=== PATIENT | female | born 2005 | race Hispanic/Latino ===

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

== ENCOUNTER 2024-05-02 22:06 | Emergency (ER) | payer BC, MEDICAID ==
[~2024-05-02] VITALS: Ht 157.5 cm; Wt 103.0 kg
[2024-05-02 22:21] VITALS: BP 189/69; PULSE 96; RESP 16; TEMP 98.6; O2SAT 99
[2024-05-02] MEDS: LIDOCAINE 1%-EPI 1:100,000 20 ML VIAL IJ SCH (22:55)
[2024-05-02] MEDS ORDERED: AMOX-427 PO (23:08)
== END 2024-05-02 23:15 | disposition home or self-care (01) ==
LOC: EDH 22:06
DX: L02.411 Cutaneous abscess of right axilla (principal); Z79.899 Other long term (current) drug therapy; Z98.890 Other specified postprocedural states
CPT/HCPCS: 99283; 10060; J3490

== ENCOUNTER 2024-07-23 23:27 | Emergency (ER) | payer SELFPAY ==
[~2024-07-23] VITALS: Ht 157.5 cm; Wt 103.6 kg
[~2024-07-23 23:27] MED LIST: AMOX-427 PO
--- NOTE | 2024-07-23 23:30 | NUR ---
COVID, FLU, STREP SWABS COLLECTED AND SENT [facility] PROVIDED
--- NOTE | 2024-07-23 23:37 | ERN ---
ED Note History of Present Illness Stated Complaint: COUGH, HEADACHE,N/V, Chief Complaint: Multiple Complaints Time Seen by MD: 23:30 Time Seen by Midlevel: 23:35 Dictation: 19-year-old female with no past medical history coming in complaining of cough, headache, nausea, vomiting and chest pain onset today. Patient states coworkers and friend were diagnosed with RSV. Patient states he took Tylenol at 6:00 p.m.. LMP was the beginning of last month. No other complaints at this time. Allergies: Coded Allergies: No Known Drug Allergies (Unverified Allergy, Unknown, 11/12/19) Home Meds Active Scripts Amoxicillin/Potassium Clav (Augmentin Xr 1,000-62.5 Tab) 1,000 Mg-62.5 Mg Tab.er.12h, 1 EACH PO BID for 10 Days, #20 TAB Prov:JERROD PAREDES 05/02/24 Past Medical History Past Medical History: No Pertinent History Surgical History: Other Surgical History Other: Social History: Other : 2 Para: 1 Aborts: 0 Review of System Dictation Constitutional: Negative for fever,chills, and weight loss Eyes: Negative for injury, pain,redness, and discharge ENT: Negative for injury,pain or swelling Cardiovascular: Negative for chest pain, palpitations, and edema Respiratory: Complaining of cough, no shortness a breath, no wheezing Abdomen/GI: Complaining of nausea and vomiting, no abdominal pain, no diarrhea, and no constipation Back: Negative for injury and pain : Negative for injury, bleeding and discharge MS/Extremity: Negative for injury and deformity Skin: Negative for rash, and discoloration Neuro: Complaining of headache, no weakness, no numbness, no tingling, and no seizure Psych: Negative for suicide ideation, homicidal ideation, and hallucinations Review of Systems: was completed Initial Vital Sign VS Vital Signs Date Time Temp Pulse Resp B/P (MAP) Pulse Ox O2 Delivery O2 Flow Rate FiO2 07/23/24 23:28 100.9 111 16 162/97 100 Room Air Physical Exam Dictation Constitutional: Negative for fever,chills, and weight loss Eyes: Negative for injury, pain,redness, and discharge ENT: Negative for injury,pain or swelling Cardiovascular: Negative for chest pain, palpitations, and edema Respiratory: Negative for shortness of breath, cough, and wheezing, Abdomen/GI: Negative for abdominal pain, nausea, vomiting, diarrhea, and constipation Back: Negative for injury and pain : Negative for injury, bleeding and discharge MS/Extremity: Negative for injury and deformity Skin: Negative for rash, and discoloration Neuro: Negative for headache, weakness, numbness, tingling, and seizure Psych: Negative for suicide ideation, homicidal ideation, and hallucinations Results (Laboratory/Radiology) Laboratory/Radiology Laboratory Tests Test 07/23/24 23:30 07/23/24 23:50 07/23/24 23:53 Influenza Type A Antigen Negative For Type A Influenza Type B Antigen Negative For Type B SARS-CoV-2, RNA, NAAT NEGATIVE SARS CoV-2 Group A Streptococcus Rapid negative (NEGATIVE) Urine Color LIGHT-YELLOW (YELLOW) Urine Appearance CLEAR (CLEAR) Urine pH 7.0 (5.0-8.0) Urine Specific [place] 1.021 (1.001-1.031) Urine Protein 10 mg/dL (NEGATIVE) H Urine Glucose (UA) NEGATIVE mg/dL (NEGATIVE) Urine Ketones NEGATIVE mg/dL (NEGATIVE) Urine Occult Blood SMALL (NEGATIVE) H Urine Nitrate NEGATIVE (NEGATIVE) Urine Bilirubin NEGATIVE mg/dL (NEGATIVE) Urine Urobilinogen 0.2 mg/dL (0.2-1.0) Urine Leukocyte Esterase NEGATIVE Suraj/uL Urine RBC 2-5 /HPF (0-1) H Urine WBC 2-5 /HPF (0-1) H Urine Squamous Epithelial Cells RARE /HPF (0-2) Urine Bacteria RARE /HPF (None Seen) Urine HCG, Qualitative NEGATIVE (NEGATIVE) Troponin I High Sensitivity < 4 ng/L (4-50) L Labs Reviewed?: Yes EKG Comment: Date:07/24/24 Time:0016 Ventricular rate:101 IN interval:141 QRS duration:75 QT/QTc:336/435 EKG interpretation: Sinus tachycardia Reviewed by ED Attending no STEMI interpreted by ER MD ED Course ED Course Orders Procedure Category Date Status Time Covid Rna Naat LAB 07/23/24 Complete 23:29 Influenza Type A & B, LAB 07/23/24 Complete Rapid 23:29 Rapid (Group A Strep) LAB 07/23/24 Complete 23:29 Urinalysis Profile LAB 07/23/24 Complete 23:29 ,Urine Test LAB 07/23/24 Complete 23:29 12 Lead Ekg Tracing- EKG 07/23/24 Logged Technical 23:31 Troponin I High LAB 07/23/24 Complete Sensitivity 23:31 Vital Signs Date Time Temp Pulse Resp B/P (MAP) Pulse Ox O2 Delivery O2 Flow Rate FiO2 07/23/24 23:28 100.9 111 16 162/97 100 Room Air Medical Decision Making MDM MDM: 19-year-old female with no past medical history coming in complaining of cough, headache, nausea, vomiting and chest pain onset today. Patient states coworkers and friend were diagnosed with RSV. Patient states he took Tylenol at 6:00 p.m.. LMP was the beginning of last month. No other complaints at this time. Serologies negative for COVID and strep and flu. Troponin is negative, EKGs did not show any ST elevations or dysrhythmias. UA shows no evidence of urinary tract infection. Discussed findings with the patient. Discussed possibly acute viral syndrome and he is to follow up with PCP in 1-2 days. And take [id number] medication for symptomatic treatment. Patient verbalized understanding, answered all questions. Differential diagnosis: , viral syndrome, influenza, COVID, strep Rationale: Tests considered and ordered secondary to shared decision making include: Previous outside records reviewed: Old ER visits. Risk of complication and/or morbidity or mortality of patient management: None Medications-Per medication reconciliation Need for hospitalization: Patient does not meet criteria for hospitalization. Need for emergency major/minor surgery: No There are no social concerns with this patient. Prescription drug management Prescriptions will include symptomatic care Patient's prior external medical records from other ER visits were reviewed by me as indicated. Prior testing and results from previous visits were reviewed. Prior tests were taken into account with medical decision making and resource utilization, independent historian/historians were used to obtain complete medical history. I independently interpreted the test that were performed, results were reviewed by me and considered findings on radiology if ordered. Medical management and examination interpretation discussions were had by me with other qualified healthcare professionals as indicated for the patient's care. DX & DISP Disposition: Discharge Departure Impression: Primary Impression: Acute viral syndrome Condition: Stable Additional Instructions: Your negative for flu COVID and strep, you do not have a urinary tract infection. This is most likely acute viral syndrome this last anywhere from 7- 10 days. You can have symptoms like cough, congestion, fever. You can take o [id number] medication to treat your symptoms like decongestants, Tylenol, and Motrin. Follow up with your primary doctor in 1-2 days or return to the emergency room if your symptoms worsen. Referrals: SELF,REFERRAL (PCP) Time of Disposition: 00:55 I have reviewed the case, and I agree with, Diagnosis and Plan JANAE KIDD NP Jul 23, 2024 23:37
[2024-07-23 23:55] LABS: RAPID GROUP A STREP negative (NEGATIVE)
[2024-07-24] LABS: SARS-CoV-2, RNA, NAAT NEGATIVE SARS CoV-2 (NEGATIVE)
[2024-07-24 00:04] LABS: INFLUENZA TYPE A Negative For Type A (NEGATIVE); INFLUENZA TYPE B Negative For Type B (NEGATIVE)
[2024-07-24 00:22] LABS: APPEARANCE,URINE CLEAR (CLEAR); BILIRUBIN,URINE NEGATIVE (NEGATIVE); COLOR,URINE LIGHT-YELLOW (YELLOW); GLUCOSE, URINE (UA) NEGATIVE (NEGATIVE); KETONES,URINE NEGATIVE (NEGATIVE); LEUKOCYTE ESTERASE ,URINE NEGATIVE Leu/uL (NEGATIVE); NITRATE,URINE NEGATIVE (NEGATIVE); OCCULT BLOOD,URINE SMALL (NEGATIVE); PROTEIN,URINE 10 mg/dL (NEGATIVE); UROBILINOGEN,URINE 0.2 mg/dL (0.2-1.0)
[2024-07-24 00:24] LABS: ADD UA MICROSCOPIC YES; HCG,QUALITATIVE URINE NEGATIVE (NEGATIVE)
[2024-07-24 00:26] LABS: BACTERIA,URINE RARE /HPF (None Seen); MUCUS,URINE RARE LPF (None Seen); SQUAMOUS EPITHELIAL CELL,UR RARE /HPF (0-2)
[2024-07-24 01:40] VITALS: BP 135/86; PULSE 98; RESP 18; TEMP 98.8; O2SAT 99
--- NOTE | 2024-07-24 07:20 | EKG ---
[facility] Test Date: 2024-07-24 Test Time: 00:16:52 Pat Name: NEHEMIAS METZ Department: [facility] Room: Gender: F Materials Handling Coordinator: [id number] : 2005 Requested By: KAI HER Order Number: [id number] Reading MD: Claude Harding Measurements Intervals [place] Rate: 101 P: 53 OK: 141 QRS: 75 QRSD: 85 T: 3 QT: 336 QTc: 435 Interpretive Statements Sinus tachycardia No previous ECG available for comparison Electronically Signed On 07-24-2024 21:07:42 ACCESS DEVELOPER by Claude Harding Please click the below link to view image of tracing.
== END 2024-07-24 01:43 | disposition home or self-care (01) ==
LOC: EDH 23:27
DX: B34.9 Viral infection, unspecified (principal); Z20.822 Contact with and (suspected) exposure to COVID-19
CPT/HCPCS: 81001; 81025; 84484; 87635; 87804; 87880; 93005; 99284

== ENCOUNTER 2024-10-27 23:29 | Emergency (ER) | payer BC ==
[~2024-10-27] VITALS: Ht 157.5 cm; Wt 95.3 kg
[2024-10-27 23:55] LABS: BASOPHILS # (AUTO) 0.05 K/uL (0.00-0.20); BASOPHILS % (AUTO) 0.4 % (0.0-5.0); EOSINOPHILS # (AUTO) 0.13 K/uL (0.00-0.70); EOSINOPHILS % (AUTO) 1.1 % (0.0-8.0); HEMATOCRIT 39.3 % (36-48); IMMATURE GRANULOCYTE ABSOLUTE 0.12 K/uL (0-1); LYMPHOCYTES # (AUTO) 3.1 K/uL (1.0-4.8); LYMPHOCYTES % (AUTO) 25.2 % (21.0-51.0); MEAN CORPUSCULAR HEMOGLOBIN 25.9 pg (27.0-33.0); MEAN CORPUSCULAR HGB CONC 33.1 g/dL (32.0-36.0); MEAN CORPUSCULAR VOLUME 78.4 fL (80-100); MONOCYTES # (AUTO) 0.7 K/uL (0.1-1.0); MONOCYTES % (AUTO) 5.6 % (3.0-13.0); NEUTROPHILS # (AUTO) 8.2 K/uL (1.8-7.7); NEUTROPHILS % (AUTO) 66.7 % (40.0-77.0); PLATELET COUNT (AUTO) 327 K/uL (130-400); RED BLOOD CELL COUNT(AUTO) 5.01 MIL/uL (4.00-5.50); RED CELL DISTRIBUTION WIDTH 13.3 % (11.0-15.5); WHITE BLOOD COUNT (AUTO) 12.2 K/uL (4.8-10.8)
[2024-10-27] MEDS: ondanSETRON 4MG INJ IVP ONE (23:55)
[2024-10-27] MEDS: morPHINE 4 MG SYG IVP ONE (23:56)
[2024-10-27 23:58] LABS: APPEARANCE,URINE CLEAR (CLEAR); BILIRUBIN,URINE NEGATIVE (NEGATIVE); COLOR,URINE LIGHT-YELLOW (YELLOW); GLUCOSE, URINE (UA) NEGATIVE (NEGATIVE); KETONES,URINE NEGATIVE (NEGATIVE); LEUKOCYTE ESTERASE ,URINE NEGATIVE Leu/uL (NEGATIVE); NITRATE,URINE NEGATIVE (NEGATIVE); PROTEIN,URINE 20 mg/dL (NEGATIVE); UROBILINOGEN,URINE 0.2 mg/dL (0.2-1.0)
[2024-10-27 23:59] LABS: ADD UA MICROSCOPIC YES
[2024-10-28] LABS: BACTERIA,URINE RARE /HPF (None Seen); MUCUS,URINE RARE LPF (None Seen); SQUAMOUS EPITHELIAL CELL,UR RARE /HPF (0-2)
[2024-10-28 00:01] LABS: HCG,QUALITATIVE URINE NEGATIVE (NEGATIVE)
[2024-10-28 00:03] LABS: CREATININE 0.9 mg/dL (0.5-1.0); POTASSIUM 3.9 mmol/L (3.5-5.1)
--- NOTE | 2024-10-28 00:42 | ERN ---
ED Note History of Present Illness Stated Complaint: PELVIC PAIN Chief Complaint: Pelvic Pain Time Seen by MD: 23:31 Dictation: This is a 19-year-old female who presented to the emergency room with severe acute left lower quadrant pelvic pain so radiating to the mons pubis. She stat ed that she was in usual health and the pain developed suddenly. She ate dinner around 5 or 6 and and other family members also ate the same food but did not experience any of her symptoms. Initially the pain started in the left lower quadrant area subsequently eats diffuse with radiation all over. Her last menstrual period was 1 week ago when she stated that her period was not like a regular. With only mild spotting lasted for 2 days. No burning micturition no frequency. No hematuria Temperature 99.2 pulse 107 respirations 20 blood pressure 146/99 with a pulse oximetry of 98% on room air Allergies: Coded Allergies: No Known Drug Allergies (Unverified Allergy, Unknown, 11/12/19) Home Meds Active Scripts Amoxicillin/Potassium Clav (Augmentin Xr 1,000-62.5 Tab) 1,000 Mg-62.5 Mg Tab.er.12h, 1 EACH PO BID for 10 Days, #20 TAB Prov:JERROD PAREDES 05/02/24 Past Medical History Past Medical History: Diabetes-Type II, Hypertension Surgical History: Surgical History Other: LEFT UPPER ARM BIRTHCONTROL Family History: Negative Social History: Negative, Other : 2 Para: 2 Aborts: 0 RN Note Reviewed/Agreed w/PFSH: Yes Review of System Dictation Constitutional: Negative for fever,chills, and weight loss Eyes: Negative for injury, pain,redness, and discharge ENT: Negative for injury,pain or swelling Cardiovascular: Negative for chest pain, palpitations, and edema Respiratory: Negative for shortness of breath, cough, and wheezing, Abdomen/GI: Negative for abdominal pain, nausea, vomiting, diarrhea, and constipation Back: Negative for injury and pain : Negative for injury, bleeding and discharge deep left-sided pelvic pain and lower abdominal pain MS/Extremity: Negative for injury and deformity Skin: Negative for rash, and discoloration Neuro: Negative for headache, weakness, numbness, tingling, and seizure Psych: Negative for suicide ideation, homicidal ideation, and hallucinations Initial Vital Sign VS Vital Signs Date Time Temp Pulse Resp B/P (MAP) Pulse Ox O2 Delivery O2 Flow Rate FiO2 10/27/24 23:31 99.1 107 20 146/99 99 Room Air 10/27/24 23:49 0 21 Physical Exam Dictation General: awake, alert, NAD obese female Head/Face: Normocephalic, atraumatic Eyes: PERRL, EOMI, vision at baseline ENT: oral cavity clear, TMs clear, no signs of infection Neck: Trachea midline, supple, no nuchal rigidity Cardiovascular: RRR, normal S1/S2, No MRGs, no JVD Respiratory: CTAB, no respiratory distress, No rales or wheezes Abdomen: Soft, non-tender, non-distended, normal bowel sounds, no guarding or rebound. Skin: Warm, dry, normal turgor, no rash MS/Extremity: Pulses equal, no cyanosis, neurovascular intact, FROM Neuro: COAx4, GCS 15, strength 5/5, CN 2-12 intact, normal cerebellar exam, normal gait, Psych: Normal behavior, mood, and affect normal Extremities-trace edema without any palpable cords, Homans sign is negative Results (Laboratory/Radiology) Laboratory/Radiology Laboratory Tests Test 10/27/24 23:40 White Blood Count 12.2 K/uL (4.8-10.8) H Red Blood Count 5.01 MIL/uL (4.00-5.50) Hemoglobin 13.0 g/dL (12.0-16.0) Hematocrit 39.3 % (36-48) Mean Corpuscular Volume 78.4 fL (80-100) L Mean Corpuscular Hemoglobin 25.9 pg (27.0-33.0) L Mean Corpuscular Hemoglobin Concent 33.1 g/dL (32.0-36.0) Red Cell Distribution Width 13.3 % (11.0-15.5) Platelet Count 327 K/uL (130-400) Mean Platelet Volume 8.9 fL (7.5-10.5) Immature Granulocyte % (Auto) 1.0 % (0-1) Neutrophils (%) (Auto) 66.7 % (40.0-77.0) Lymphocytes (%) (Auto) 25.2 % (21.0-51.0) Monocytes (%) (Auto) 5.6 % (3.0-13.0) Eosinophils (%) (Auto) 1.1 % (0.0-8.0) Basophils (%) (Auto) 0.4 % (0.0-5.0) Neutrophils # (Auto) 8.2 K/uL (1.8-7.7) H Lymphocytes # (Auto) 3.1 K/uL (1.0-4.8) Monocytes # (Auto) 0.7 K/uL (0.1-1.0) Eosinophils # (Auto) 0.13 K/uL (0.00-0.70) Basophils # (Auto) 0.05 K/uL (0.00-0.20) Absolute Immature Granulocyte (auto 0.12 K/uL (0-1) Nucleated Red Blood Cells 0.0 % (0.0-0.19) Urine Color LIGHT-YELLOW (YELLOW) Urine Appearance CLEAR (CLEAR) Urine pH 6.0 (5.0-8.0) Urine Specific [place] 1.029 (1.001-1.031) Urine Protein 20 mg/dL (NEGATIVE) H Urine Glucose (UA) NEGATIVE mg/dL (NEGATIVE) Urine Ketones NEGATIVE mg/dL (NEGATIVE) Urine Occult Blood +- (TRACE) (NEGATIVE) H Urine Nitrate NEGATIVE (NEGATIVE) Urine Bilirubin NEGATIVE mg/dL (NEGATIVE) Urine Urobilinogen 0.2 mg/dL (0.2-1.0) Urine Leukocyte Esterase NEGATIVE Suraj/uL Urine RBC 2-5 /HPF (0-1) H Urine WBC 2-5 /HPF (0-1) H Urine Squamous Epithelial Cells RARE /HPF (0-2) Urine Bacteria RARE /HPF (None Seen) Urine HCG, Qualitative NEGATIVE (NEGATIVE) Sodium Level 134 mmol/L (136-145) L Potassium Level 3.9 mmol/L (3.5-5.1) Chloride Level 99 mmol/L (101-111) L Carbon Dioxide Level 29 mmol/L (21-32) Blood Urea Nitrogen 10 mg/dL (7-18) Creatinine 0.9 mg/dL (0.5-1.0) Glomerular Filtration Rate Calc 93 mL/min (>90) Random Glucose 107 mg/dL (70-105) H Total Calcium 9.1 mg/dL (8.5-10.1) Labs Reviewed?: Yes CT Scan Comment: REASON: severe acute left LQ abdominal pain ? kidb=ginette stone? ruptured ectopic ORDERING PHYSICIAN: KAI HER MD PROCEDURE: ABD PELVWO - CT ABD/PEL WO CON RENAL/APPY CT ABD/PEL WO CON RENAL/APPY HISTORY: Left lower abdominal pain COMPARISON: None TECHNIQUE: Multiple sequential axial images of the abdomen and pelvis were obtained from the dome of the diaphragm through symphysis pubis. Patient was not given contrast through intravenous route. Oral contrast was not given. FINDINGS: No pleural effusion is seen bilaterally. There is no evidence of parenchymal disease or pulmonary nodule of the visualized lower lungs. Degenerative changes of the thoracolumbar spine are present. The heart is not enlarged. Then liver is enlarged with fatty changes measuring 22 cm. The liver, spleen, adrenal glands and pancreas are unremarkable. There is no evidence of hydronephrosis bilaterally. No evidence of renal stone is seen. Fecal material is seen in the colon. There are normal size retroperitoneal and mesenteric lymph nodes. No ascites is seen. No CT evidence of acute appendicitis is seen. Left ovary is enlarged measuring 5.3 x 3 cm. Pelvic sidewalls are symmetric bilaterally. Bladder is moderately distended. IMPRESSION: 1. No CT evidence of acute appendicitis is seen. Left ovary is enlarged measuring 5.3 x 3 cm. No ascites. No hydronephrosis. CT was performed with one or more following dose reduction techniques: automated exposure control, adjustment of the mA and kv according to patient's size, or use of a iterative reconstruction technique. DICTATED BY: DEMARCUS CALLOWAY MD DATE: 10/28/24102 ELECTRONICALLY SIGNED BY: DEMARCUS CALLOWAY MD DATE: 10/28/24107 ED Course ED Course Orders Procedure Category Date Status Time Cbc With Differential LAB 10/27/24 Complete 23:44 Basic Metabolic Panel LAB 10/27/24 Complete 23:44 Urinalysis Profile LAB 10/27/24 Complete 23:44 ,Urine Test LAB 10/27/24 Complete 23:44 Morphine 4mg Syg PHA 10/28/24 Complete (Morphine 4mg Syg) 00:00 Ondansetron 4mg Inj PHA 10/28/24 Complete (Zofran 4mg Inj) 00:00 Ct Abd/Pel Wo Con CT 10/28/24 Resulted Renal/Appy 00:35 Current Medications Medications (Trade) Dose Ordered Sig/Kae Route PRN Reason Start Time Stop Time Status Last Admin Dose Admin Morphine Sulfate (morPHINE 4MG SYG) 4 mg ONCE ONCE IVP 10/28/24 00:00 10/28/24 00:01 DC 10/27/24 23:56 Ondansetron HCl (zoFRAN 4MG INJ) 4 mg ONCE ONCE IVP 10/28/24 00:00 10/28/24 00:01 DC 10/27/24 23:55 Vital Signs Date Time Temp Pulse Resp B/P (MAP) Pulse Ox O2 Delivery O2 Flow Rate FiO2 10/28/24 01:34 98.1 74 16 127/67 99 Room Air* 0 21 10/27/24 23:49 74 16 134/71 97 Room Air* 0 21 10/27/24 23:31 99.1 107 20 146/99 99 Room Air We will perform diagnostic labs, advanced imaging and administer medications according to the patient's complaint. Once the results are available, will review and personally interpreted the labs to rule out any acute life- threatening emergency the trach require immediate intervention and treatment. I will then re-evaluate the patient after treatment and diagnostic exams have return to determine whether the patient requires any further testing, can safely be discharged home or need further admission to hospital for additional treatment and evaluation. CBC showed a white count of 12.2 hemoglobin of 13. BNP 7 is with a normal limits urinalysis is unremarkable test is negative. CT scan of the abdomen and pelvis showed enlarged left ovary and constipation I updated the patient and her spouse on the findings and she indicated to me that she was aware of enlarged left ovary. Her pain is significantly improved and I educated her on bowel regimen and laxatives. Medical Decision Making MDM MDM: Differential diagnosis: Colitis, constipation, ovarian cyst rupture, ectopic , renal stone Rationale: Tests considered and ordered secondary to shared decision making include: Previous outside records reviewed: Old ER visits. Risk of complication and/or morbidity or mortality of patient management: None Medications-Per medication reconciliation Need for hospitalization: Patient does not meet criteria for hospitalization. Need for emergency major/minor surgery: No There are no social concerns with this patient. Prescription drug management Prescriptions will include symptomatic care Patient's prior external medical records from other ER visits were reviewed by me as indicated. Prior testing and results from previous visits were reviewed. Prior tests were taken into account with medical decision making and resource utilization, independent historian/historians were used to obtain complete medical history. I independently interpreted the test that were performed, results were reviewed by me and considered findings on radiology if ordered. Medical management and examination interpretation discussions were had by me with other qualified healthcare professionals as indicated for the patient's care. Problem List Problem List: (1) Left lower quadrant abdominal pain (2) Left ovarian enlargement (3) Constipation DX & DISP Disposition: Discharge Departure Impression: Primary Impression: Left lower quadrant abdominal pain Additional Impressions: Left ovarian enlargement, Constipation Condition: Stable Additional Instructions: Patient and the caregiver have been informed of all the diagnostic tests and the imaging conducted during the today's visit to the emergency room and has verbalized understanding of the results I have personally reviewed and interpreted all diagnostic exams performed here in the ER today as well as the vital signs documented by the nursing staff. The patient is now being discharged to home and should follow up with the primary care physician or the specialist as directed by the ER staff. Follow-up with primary care provider in 1 to 2 days. Take medications as directed here in the emergency room. Okay to continue home medications unless otherwise discussed during your visit in the emergency room today. Return to your nearest emergency room if symptoms worsen or if there is no improvement. Call 911 if you need immediate assistance. Take Tylenol or Motrin [id number] as needed and if no contraindications are present. Increase oral hydration. A wound culture or urine culture was ordered here in the emergency room department please follow-up with primary care provider and advise them to get repeat ports from our facility. If you had any Bryant wrap/splints that were applied here, please do not remove them until you see your primary care or specialty. Patient should also follow up with her OBGYN physician for evaluation of her left ovary Referrals: SELF,REFERRAL (PCP) KAI HER MD Oct 28, 2024 00:42
--- NOTE | 2024-10-28 01:08 | HMCIMG ---
CT ABD/PEL WO CON RENAL/APPY HISTORY: Left lower abdominal pain COMPARISON: None TECHNIQUE: Multiple sequential axial images of the abdomen and pelvis were obtained from the dome of the diaphragm through symphysis pubis. Patient was not given contrast through intravenous route. Oral contrast was not given. FINDINGS: No pleural effusion is seen bilaterally. There is no evidence of parenchymal disease or pulmonary nodule of the visualized lower lungs. Degenerative changes of the thoracolumbar spine are present. The heart is not enlarged. Then liver is enlarged with fatty changes measuring 22 cm. The liver, spleen, adrenal glands and pancreas are unremarkable. There is no evidence of hydronephrosis bilaterally. No evidence of renal stone is seen. Fecal material is seen in the colon. There are normal size retroperitoneal and mesenteric lymph nodes. No ascites is seen. No CT evidence of acute appendicitis is seen. Left ovary is enlarged measuring 5.3 x 3 cm. Pelvic sidewalls are symmetric bilaterally. Bladder is moderately distended. IMPRESSION: 1. No CT evidence of acute appendicitis is seen. Left ovary is enlarged measuring 5.3 x 3 cm. No ascites. No hydronephrosis. CT was performed with one or more following dose reduction techniques: automated exposure control, adjustment of the mA and kv according to patient's size, or use of a iterative reconstruction technique.
[2024-10-28 01:34] VITALS: BP 127/67; PULSE 74; RESP 16; TEMP 98.1; O2SAT 99
== END 2024-10-28 01:39 | disposition home or self-care (01) ==
LOC: EDH 23:29
DX: K59.00 Constipation, unspecified (principal); N83.8 Other noninflammatory disorders of ovary, fallopian tube and broad ligament; R10.32 Left lower quadrant pain; E11.9 Type 2 diabetes mellitus without complications; I10 Essential (primary) hypertension; Z98.890 Other specified postprocedural states
CPT/HCPCS: 99284; 96374; 96375; 80048; 85025; 81001; 81025; 36415; 74176; J2405; J2270

== ENCOUNTER → 2025-06-07 | Emergency (ER) | payer BC ==
[~2025-06-07] VITALS: Ht 157.5 cm; Wt 102.1 kg
[~2025-06-07] MED LIST changes: +ERYT1OIN7 OP
[2025-06-07 23:12] VITALS: BP 139/98; PULSE 119; RESP 20; TEMP 98
[2025-06-07] MEDS: TETRACAINE HCL 0.5% 4 ML OPHTH SOLN OP ONE (23:44)
[2025-06-07] MEDS: FLUORESCEIN SODIUM 1 STRIP STRIP OP ONE (23:44)
--- NOTE | 2025-06-07 23:45 | ERN ---
ED Note History of Present Illness Stated Complaint: LEFT EYE REDNESS Chief Complaint: Eye Problems Time Seen by MD: 23:13 Time Seen by Midlevel: 23:15 Dictation: 20-year-old female with no past medical history coming in with complaints of left eye redness, , crusting for the last week. Patient states she thinks her mosquito because she has a had a for a very long time. Allergies: Coded Allergies: No Known Drug Allergies (Unverified Allergy, Unknown, 11/12/19) Home Meds Active Scripts Amoxicillin/Potassium Clav (Augmentin Xr 1,000-62.5 Tab) 1,000 Mg-62.5 Mg Tab.er.12h, 1 EACH PO BID for 10 Days, #20 TAB Prov:JERROD PAREDES 05/02/24 Past Medical History Past Medical History: No Pertinent History, Diabetes-Type II, Hypertension Surgical History: Surgical History Other: LEFT UPPER ARM BIRTHCONTROL Family History: Negative Social History: Negative, Other : 2 Para: 2 Aborts: 0 Review of System Dictation Constitutional: Negative for fever,chills, and weight loss Eyes: Complaining of left eye redness, drainage ENT: Negative for injury,pain or swelling Cardiovascular: Negative for chest pain, palpitations, and edema Respiratory: Negative for shortness of breath, cough, and wheezing, Abdomen/GI: Negative for abdominal pain, nausea, vomiting, diarrhea, and constipation Back: Negative for injury and pain : Negative for injury, bleeding and discharge MS/Extremity: Negative for injury and deformity Skin: Negative for rash, and discoloration Neuro: Negative for headache, weakness, numbness, tingling, and seizure Psych: Negative for suicide ideation, homicidal ideation, and hallucinations Review of Systems: was completed Initial Vital Sign VS Vital Signs Date Time Temp Pulse Resp B/P (MAP) Pulse Ox O2 Delivery O2 Flow Rate FiO2 06/07/25 23:12 98.1 119 20 139/98 100 Room Air Physical Exam Dictation General: awake, alert, NAD Head/Face: Normocephalic, atraumatic Eyes: PERRL, EOMI, vision at baseline, minimal fluorescein reuptake, consistent with a corneal abrasion, and conjunctivitis, no foreign body, no ulceration relieved with topical anesthetic did you take lesions, negative cong ENT: oral cavity clear, TMs clear, no signs of infection Neck: Trachea midline, supple, no nuchal rigidity Cardiovascular: RRR, normal S1/S2, No MRGs, no JVD Respiratory: CTAB, no respiratory distress, No rales or wheezes Abdomen: Soft, non-tender, non-distended, normal bowel sounds, no guarding or rebound. Skin: Warm, dry, normal turgor, no rash MS/Extremity: Pulses equal, no cyanosis, neurovascular intact, FROM Neuro: COAx4, GCS 15, strength 5/5, CN 2-12 intact, normal cerebellar exam, normal gait, Psych: Normal behavior, mood, and affect normal ED Course ED Course Orders Procedure Category Date Status Time Tetracaine Hcl PHA 06/07/25 Complete (Pontocaine 0.5% 23:30 *Nursing CPOE 06/07/25 Transmitted Communication: 23:18 Fluorescein Sodium PHA 06/07/25 Complete (Qnweq-U-Nngiy At) 23:30 Current Medications Medications (Trade) Dose Ordered Sig/Kae Route PRN Reason Start Time Stop Time Status Last Admin Dose Admin Fluorescein Sodium (Sbtqn-J-Xidzr At) 1 strip ONCE ONCE OP 06/07/25 23:30 06/07/25 23:32 DC Tetracaine HCl (Pontocaine 0.5% Ophth Soln) 1 OR 2 DROPS ONCE ONCE OP 06/07/25 23:30 06/07/25 23:31 DC Vital Signs Date Time Temp Pulse Resp B/P (MAP) Pulse Ox O2 Delivery O2 Flow Rate FiO2 06/07/25 23:12 98.1 119 20 139/98 100 Room Air Medical Decision Making MDM MDM: 20-year-old female with no past medical history coming in with complaints of left eye redness, , crusting for the last week. Patient states she thinks her mosquito because she has a had a for a very long time. Findings consistent with conjunctivitis and corneal abrasion. We will prescribe patient has some erythromycin and follow up outpatient with poultryman. Discussed with the patient on red flag symptoms of when to return back to the emergency room , patient verbalized understanding, answered all questions. Differential diagnosis: Conjunctivitis, corneal abrasion Rationale: Tests considered and ordered secondary to shared decision making i nclude: Previous outside records reviewed: Old ER visits. Risk of complication and/or morbidity or mortality of patient management: None Medications-Per medication reconciliation Need for hospitalization: Patient does not meet criteria for hospitalization. Need for emergency major/minor surgery: No There are no social concerns with this patient. Prescription drug management Prescriptions will include symptomatic care Patient's prior external medical records from other ER visits were reviewed by me as indicated. Prior testing and results from previous visits were reviewed. Prior tests were taken into account with medical decision making and resource utilization, independent historian/historians were used to obtain complete medical history. I independently interpreted the test that were performed, results were reviewed by me and considered findings on radiology if ordered. Medical management and examination interpretation discussions were had by me with other qualified healthcare professionals as indicated for the patient's care. DX & DISP Disposition: Discharge Departure Impression: Primary Impression: Conjunctivitis Additional Impressions: Corneal abrasion, Corneal abrasion, left Condition: Stable Scripts Erythromycin Base (Erythromycin) 5 Mg/Gram (0.5 %) Oint...g. 1 APPL OP QID for 7 Days, #7 GM 0 Refills apply 1 cm ribbon into the lower conjunctival sac Prov: JANAE KIDD CNP 06/07/25 Additional Instructions: Use the ointment as prescribed. Follow up with an poultryman within 1-2 days. Referrals: SELF,REFERRAL (PCP) Time of Disposition: 23:45 I have reviewed the case, and I agree with, Diagnosis and Plan JANAE KIDD CNP Jun 07, 2025 23:45
== END ==
LOC: EDH 23:10
DX: S05.02XA Injury of conjunctiva and corneal abrasion without foreign body, left eye, initial encounter (principal); H10.9 Unspecified conjunctivitis; Z98.890 Other specified postprocedural states; X58.XXXA Exposure to other specified factors, initial encounter; Y93.89 Activity, other specified; Y92.89 Other specified places as the place of occurrence of the external cause; Y99.8 Other external cause status
CPT/HCPCS: 99283